=== PATIENT | female | born 1940 | race Caucasian/White ===

== ENCOUNTER 2016-09-02 11:33 | Outpatient (CLI) | payer MEDICARE | END 2016-09-02 11:34 | disposition home or self-care (01) | LOC: HPCALD 11:33 | PROVIDERS: ATTEND Family Medicine | DX: R31.9 Hematuria, unspecified (principal) | CPT/HCPCS: 87077; 87086; 87186; 88112 ==

== ENCOUNTER 2016-09-14 15:53 | Outpatient (CLI) | payer MEDICARE | END 2016-09-14 15:54 | disposition home or self-care (01) | LOC: BURLAB 15:53 | PROVIDERS: ATTEND Nurse Practitioner Family | DX: Z01.812 Encounter for preprocedural laboratory examination (principal) | CPT/HCPCS: 36415; 82565 ==

== ENCOUNTER 2016-09-17 13:35 | Outpatient (CLI) | payer MEDICARE ==
--- NOTE | 2016-09-17 16:26 | MRI ---
MRI OF THE LUMBAR SPINE WITH AND WITHOUT CONTRAST: Date: 09/17/16 Multiplanar, multisequential imaging of lumbar spine obtained. Postcontrast images obtained with adm inistration of IV MultiHance. HISTORY: Low back pain. Postoperative back. Bilateral radiculopathy. Comparison made to CT lumbar spine dated 2007. FINDINGS: Pedicle screws transfixing interbody implant at L4-5 infusion is again noted. This was present on th e prior CT and showed no significant interval change Severe degenerative disc change seen at all other levels of the lumbar spine. Mild compression of th e T12 vertebra has occurred since the prior exam with mild central and anterior wedging. Mild edema within the T12 and L1 vertebra is seen. Prominent anterior and lateral osteophytes. At the T12-L1 disc level, there is a broad based disc bulge flattening the anterior thecal sac. Only mild central canal stenosis is present; however, there is bilateral foraminal encroachment due to d isc osteophyte complex and facet hypertrophy encroaching into the foramina. This appears slightly mo re pronounced on the left. At L1-2, broad based disc bulge is present with facet hypertrophy resulting in mild central canal st enosis. Bilateral foraminal encroachment due to the diffuse disc bulge is noted. At L2-3, diffuse disc bulge and posterior osteophytes from the vertebral bodies flatten the thecal s ac. Facet hypertrophy. Moderate central canal stenosis. No significant foraminal stenosis. At L3-4, there is diffuse disc bulge. Facet hypertrophy. Moderate central canal stenosis. Mild caryn inal narrowing due to facet hypertrophy. The postoperative and post fusion changes at L4-5 are again noted and appear stable from the prior C T. At L5-S1, there is no disc bulge or protrusion. There is facet hypertrophy; however, no central rashid l or foraminal stenosis at this level. IMPRESSION: 1. Pedicle screws and fusion at L4-5 appear stable from the prior CT of 2007. 2. Severe degenerative disc changes above L4 with central canal foraminal stenosis at these levels as described above. 3. Mild central and anterior wedge compression of the T12 vertebra has occurred since the prior CT. There is mild superior end plate compression and there is mild edema in the T12 and L1 vertebra. Th e T1 images show a linear signal through both these vertebra associated with the edema which is conc erning for osteoporotic fractures. No significant loss of height of the L1 vertebra is seen at this time. Follow-up is suggested to assess progressive height loss and osteoporotic compression. POS: ROBIN
--- NOTE | 2016-09-17 20:38 | RAD ---
RIGHT KNEE 09/17/16 Two views show a linear metallic opaque foreign body just anterior to the proximal tibia. The bone appears unaffected. IMPRESSION: Foreign body POS: HOME
== END 2016-09-17 13:36 | disposition home or self-care (01) ==
LOC: BURMRI 13:35
PROVIDERS: ATTEND Nurse Practitioner Family
DX: M48.06 Spinal stenosis, lumbar region (principal); M51.16 Intervertebral disc disorders with radiculopathy, lumbar region
CPT/HCPCS: 72158

== ENCOUNTER 2016-12-02 09:20 | Outpatient (CLI) | payer MEDICARE ==
[2016-12-02 10:49] LABS: #Basophils 0.1 thou/uL (0.0-0.2); #Eosinphils 0.3 thou/uL (0.0-0.7); #Lymphocytes 3.2 thou/uL (1.20-3.40); #Monocytes 0.5 thou/uL (0.11-0.59); #Neutrophils 4.8 thou/uL (1.40-6.50); %Basophils 1.4 % (0.0-1.0); %Lymphocytes 35.9 % (21.0-51.0); %Monocytes 5.7 % (0.0-10.0); Hemoglobin 14.3 g/dL (12.0-16.0); Mean Corpuscular HGB CONC 34.1 g/dL (32.0-36.0); Mean Corpuscular Hemoglobin 30.7 pg (27.0-31.0); Mean Platelet Volume 7.5 fL (7.4-10.4); Platelet Count 180 thou/uL (130-400); RBC Distribution Width 12.5 % (11.5-14.5); Red Blood Cell (RBC) Count 4.65 mill/uL (4.20-5.40)
[2016-12-02 10:51] LABS: ALT (SGPT) 15 U/L (0-55); AST (SGOT) 20 U/L (5-34); Albumin 4.2 g/dL (3.4-4.8); Alkaline Phosphatase 88 U/L (40-150); Anion Gap 13 mmol/L (10-20); BUN (Urea Nitrogen) 11 mg/dL (9.8-20.1); Bilirubin, Total 0.3 mg/dL (0.2-1.2); Calc. Creatinine Clearance 0 mL/min (70-130); Calcium 8.9 mg/dL (7.8-10.44); Carbon Dioxide 28 mmol/L (23-31); Cardiac Risk 5.1 (Less than 4.5); Chloride 107 mmol/L (98-107); Cholesterol 213 mg/dL (< 200 Desired); Estimated GFR-MDRD 65; Globulin 2.6 g/dL (2.4-3.5); Glucose 104 mg/dL (83-110); HDL Cholesterol 42 mg/dL (>60 Neg Risk); LDL Cholesterol, Calculated 141 mg/dL; Potassium 3.7 mmol/L (3.5-5.1); Protein, Total 6.8 g/dL (5.8-8.1); Sodium 144 mmol/L (136-145); Triglycerides 148 mg/dL (Less than 150)
[2016-12-02 11:25] LABS: Hemoglobin A1c 5.7 % (4.0-6.0)
== END 2016-12-02 09:21 | disposition home or self-care (01) ==
LOC: HPCALD 09:20
PROVIDERS: ATTEND Family Medicine
DX: Z13.6 Encounter for screening for cardiovascular disorders (principal); R73.09 Other abnormal glucose; I10 Essential (primary) hypertension; E55.9 Vitamin D deficiency, unspecified
CPT/HCPCS: 36415; 80053; 80061; 82306; 83036; 85025

== ENCOUNTER 2017-02-17 08:56 | Outpatient (CLI) | payer MEDICARE ==
--- NOTE | 2017-02-17 18:09 | CT ---
CT SOFT TISSUE NECK WITH CONTRAST 02/17/[address] of the neck was performed using a bolus of IV contrast for evaluation of a palpable subcut aneous nodule overlying the mid left carotid artery. Comparison is made with a CT angio of the neck done at [facility] dated 12/24/15. Axial slices were acquired, then coronal and sagittal reconstructions were done. There is a small calcified nodule on the left side of the neck just below the angle of the mandible and adjacent to some of the branches of the carotid artery. It measures 8 mm in size and may be the palpable abnormality of concern. It was present on the 12/24/15 CT angio of the neck done previously. No other masses were appreciated in the neck. There was no abnormal amount of adenopathy. The paroti d glands are generous in size bilaterally, but symmetrical. The airways are patent and show no parti cular asymmetry or mass. The thyroid gland may have a subcentimeter lucency in its upper pole, right lobe. An ultrasound would be needed to confirm. The visible paranasal sinuses are clear. Extensive severe degenerative changes are present in the patient's spine. There is a moderate degree of centra l canal stenosis at C4-C5 and a mild degree at C5-C6. Areas of streaking are seen in the upper lobes on the lowest slices which could be scarring or atelectasis. IMPRESSION: 1. 8 mm calcified nodule left neck adjacent to carotid branches just a short distance below the angle of the mandible. I see no other palpable abnormalities of concern. Given that this is calcifi ed, it is not of current concern. 2. Severe degenerative changes in the neck with spinal stenosis at at least two levels as noted . 3. Question of some subcentimeter lucency in the upper pole of the right lobe of the thyroid gl and. Ultrasound would be more definitive. Code T POS: HOME
== END 2017-02-17 08:57 | disposition home or self-care (01) ==
LOC: BURCT 08:56
PROVIDERS: ATTEND Family Medicine
DX: Z01.812 Encounter for preprocedural laboratory examination (principal); R22.1 Localized swelling, mass and lump, neck; M48.02 Spinal stenosis, cervical region
CPT/HCPCS: 36415; 70491; 82565

== ENCOUNTER 2020-11-20 12:09 | Outpatient (CLI) | payer MEDICARE | END 2020-11-20 12:10 | disposition home or self-care (01) | LOC: BURRAD 12:09 | PROVIDERS: ATTEND Anesthesiology Pain Medicine | DX: M48.062 Spinal stenosis, lumbar region with neurogenic claudication (principal); M19.011 Primary osteoarthritis, right shoulder; S32.010A Wedge compression fracture of first lumbar vertebra, initial encounter for closed fracture; M47.816 Spondylosis without myelopathy or radiculopathy, lumbar region; K59.00 Constipation, unspecified | CPT/HCPCS: 72110 ==